=== PATIENT | female | born 1935 | race Caucasian/White ===

== ENCOUNTER 2017-10-06 10:41 | Observation (INO) | payer MEDICARE, OTHER ==
[2017-09-30 12:13] LABS: BASOPHILS % 0.6 % (0.0-1.0); EOSINOPHILS # (AUTO) 0.3 (0.0-0.4); EOSINOPHILS % 4.8 % (0.0-6.0); HEMOGLOBIN 11.1 g/dL (12.0-16.0); LYMPHOCYTES % 27.5 % (18.0-39.1); MEAN CORPUSCULAR HEMOGLOBIN 28.2 pg (28-32); MEAN CORPUSCULAR HGB CONC 30.8 g/dL (31-35); MEAN CORPUSCULAR VOLUME 91.6 fL (81-99); MONOCYTES # (AUTO) 0.8 (0.2-0.8); MONOCYTES % 10.5 % (4.4-11.3); PLATELET COUNT 120 x10e3/uL (140-360); RED BLOOD COUNT 3.93 x10e6/uL (3.6-5.1); RED CELL DISTRIBUTION WIDTH 14.5 % (11.7-14.4)
[2017-09-30 12:29] LABS: ANION GAP 11.5 mmol/L (8-16); CALCIUM 9.5 mg/dL (8.4-10.2); CREATININE, SERUM 1.12 mg/dL (0.57-1.11); POTASSIUM 4.5 mmol/L (3.5-5.1)
--- NOTE | 2017-09-30 13:19 | Diagnostic Imaging Report ---
PROCEDURE: X-RAY CHEST, TWO VIEWS COMPARISON: None. INDICATIONS: PREOPERATIVE FOR BLADDER SURGERY FINDINGS: Left subclavian approach implantable cardiac device body projects over the left midlung. Leads project over the expected region of the right atrium and right ventricle. Lungs are well-expanded and without focal consolidation, pleural effusion, or pneumothorax. Nodular opacity projecting over the right lower lung likely represents a vessel end-on or a calcified granuloma. Bilateral calcified hilar lymph nodes.. Tortuosity and atherosclerotic calcification of the thoracic aorta. Normal heart size. No pulmonary edema. No acute osseous abnormality.. CONCLUSION: No acute cardiopulmonary abnormality. Evidence of prior granulomatous infection. Dictated by: Shailesh Escobedo M.D. on 09/30/2017 at 13:24 Electronically approved by: Shailesh Escobedo M.D. on 09/30/2017 at 13:24
[~2017-10-06] VITALS: Ht 160 cm; Wt 78.9 kg
[~2017-10-06 10:41] MED LIST: ASPIRIN81 MG; CHOLESTEROL MED; LEVOTHYROXINE50 MCG PO; LISINOPRIL2.5 MG PO; PRILOSEC OTC20 MG
[2017-10-06] MEDS ORDERED: IOPAMIDOL 300MG/ML 50ML INFUS..BTL IV ONE (11:02)
[2017-10-06] MEDS ORDERED: METHYLENE BLUE 1% INJ 10 ML VIAL INJ ONE (11:02)
[2017-10-06] MEDS ORDERED: BACITRACIN 50,000 UNIT VIAL ONE (11:02)
[2017-10-06] MEDS ORDERED: CEFTRIAXONE SOD 1 GM VIAL ONE (12:00)
[2017-10-06] MEDS ORDERED: ATORVASTATIN CA20 MG PO (12:18)
[2017-10-06] MEDS ORDERED: GABAPENTIN300 MG PO (12:18)
[2017-10-06] MEDS ORDERED: humulin 70/30 (12:18)
[2017-10-06] MEDS ORDERED: BUPIVACAINE 0.25%/EPI 30ML SDV INJ ONE (12:55)
[2017-10-06] MEDS ORDERED: FENTANYL CITRATE/PF 100MCG/2 ML INJ ONE ×3 (14:24→18:08)
[2017-10-06] MEDS ORDERED: KETOROLAC TROMETHAMINE 30 MG/ML VIAL ONE (14:46)
[2017-10-06] MEDS ORDERED: ACETAMINOPHEN 1000 MG/100 ML 100 ML IV ONE (14:46)
[2017-10-06] MEDS ORDERED: ACETAMINOPHEN/CODEINE 300MG - 30MG TAB PO PRN ×2 (16:30→19:00)
[2017-10-06 17:45] VITALS: BP 161/68
[2017-10-06] MEDS ORDERED: PROPOFOL IV EMULSION 10 MG/ML 20 ML VIAL ONE (17:54)
[2017-10-06] MEDS ORDERED: ONDANSETRON HCL INJ 2 MG/ML VIAL ONE (17:54)
[2017-10-06] MEDS ORDERED: LIDOCAINE HCL 2% LOCAL INJ 5 ML SDV VIAL INJ ONE (17:54)
[2017-10-06] MEDS ORDERED: SEVOFLURANE INHAL SOLN 250 ML PEN BTL ONE (17:54)
[2017-10-06] MEDS ORDERED: DEXAMETHASONE SOD PHOS INJ 4 MG/ML VIAL ONE (17:54)
[2017-10-06] MEDS: LACTATED RINGER'S 1,000 ML IV SCH (18:02)
[2017-10-06 18:05] VITALS: BP 161/68
[2017-10-06 18:06] VITALS: BP 161/68
[2017-10-06] MEDS ORDERED: MIDAZOLAM HCL 2 MG/2 ML VIAL ONE (18:08)
[2017-10-06 20:00] VITALS: BP 170/66
[2017-10-06] MEDS ORDERED: ATORVASTATIN 20 MG TAB PO SCH (21:00)
[2017-10-06] MEDS ORDERED: ATORVASTATIN 40 MG TAB PO SCH (21:00)
[2017-10-06] MEDS: GABAPENTIN 300 MG CAP PO SCH (21:17)
[2017-10-06 21:19] VITALS: BP 170/66
[2017-10-07] VITALS (7 sets, daily range): BP systolic 120–151; BP diastolic 58–60
[2017-10-07] MEDS: LACTATED RINGER'S 1,000 ML IV SCH (05:50)
[2017-10-07] MEDS ORDERED: LEVOTHYROXINE SODIUM 50 MCG TAB PO SCH (06:00)
[2017-10-07] MEDS ORDERED: HUMULIN 70/30 VIAL SQ SCH (07:30)
[2017-10-07] MEDS ORDERED: PANTOPRAZOLE SOD 40 MG TABEC PO SCH (07:30)
[2017-10-07] MEDS: GABAPENTIN 300 MG CAP PO SCH (08:53)
[2017-10-07] MEDS ORDERED: OMEPRAZOLE 20 MG CAP PO SCH (09:00)
[2017-10-07] MEDS ORDERED: LISINOPRIL 2.5 MG TAB PO SCH (09:00)
[2017-10-07] MEDS ORDERED: INSULIN REGULAR SQ SCH (09:00)
[2017-10-07] MEDS ORDERED: INSULIN ISOPHANE SQ SCH (09:00)
[2017-10-07] MEDS ORDERED: INSULIN REGULAR, HUMAN 100 UNIT/1 ML 3ML VIAL SQ ONE (12:00)
--- NOTE | 2017-10-07 14:36 | Operative Report ---
DATE OF PROCEDURE: October 06, 2017 PREOPERATIVE DIAGNOSES 1. Recurrent urinary tract infections due to incontinence and incomplete emptying. 2. Stress urinary incontinence. PREOPERATIVE DIAGNOSES 1. Recurrent urinary tract infections due to incontinence and incomplete emptying. 2. Stress urinary incontinence. OPERATIVE PROCEDURES PERFORMED 1. Cystoscopy. 2. Pubovaginal sling using [employer]vantage. ANESTHESIA: General anesthesia. ESTIMATED BLOOD LOSS: Minimal. INDICATIONS: Ms. Esther Callaway is a 81-year-old woman with a history of significant stress urinary incontinence requiring diapers and recurrent urinary tract infection. She now presents for potential diagnosis and management of both of these problems. PROCEDURE IN DETAIL: The patient was brought in the operating room, placed in supine position and after initiation of general anesthesia was placed in dorsal lithotomy position and prepped and draped in usual sterile fashion. Cystourethroscopy was performed using a 21-[place] cystoscope. The anterior and posterior urethra were noted to be normal. There was a mild cystocele, but the bladder was entered without difficulty. Upon entrance into the bladder, the ureteral orifices were in their normal anatomical position and produced clear efflux. 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 There were no mucosal lesions identified. The cystoscope and sheath were removed. A Pepe catheter was placed and the balloon inflated. After local infiltration using 0.25% plain Marcaine, a 1 cm incision was made in the mid anterior vaginal mucosa approximately 1 cm proximal to the urethral meatus. Dissection was carried out undermining the periurethral tissues on both sides. The [employer] trocars were placed first on the right side and subsequently on the left side through that incision and allowed to exit the retropubic space. The Pepe catheter was removed and repeat cystoscopy was performed. This revealed no evidence of injury to the bladder or the urethra. The skin was then pulled anteriorly such that there was 1 cm gap between the posterior urethra and the mesh. The vaginal mucosa was then pulled out over this, reapproximated and closed using a [id number] Vicryl suture. The mesh was cut flush with the anterior abdominal wall and these sites were infiltrated using 0.25% Marcaine as well. A vaginal pack was placed and anesthesia was reversed. The patient was returned to supine position and the patient was transferred to a bed and taken to the postanesthesia care unit in good condition. Of note, the needle and instrument count were correct at the conclusion of the case. Job#: [id number] GEOVANY
== END 2017-10-07 14:27 | disposition home or self-care (01) ==
LOC: OR 10:41 → PACU V 16:21 → IMCU 17:09
PROVIDERS: ADMIT Urology; ATTEND Urology
DX: N39.3 Stress incontinence (female) (male) (principal); N39.0 Urinary tract infection, site not specified; I10 Essential (primary) hypertension; Z87.440 Personal history of urinary (tract) infections; E11.9 Type 2 diabetes mellitus without complications
CPT/HCPCS: 36415 ×3; 57288; 71046; 80048; 82948 ×2; 85025; 93005; 96372; C1771; G0378 ×2; J0696; J1100; J1885; J2001; J2250; J2405; J7120 ×2; S0164